=== PATIENT | male | born 1935 | race Hispanic/Latino ===

== ENCOUNTER 2018-06-01 12:31 | Inpatient (IN) | payer MEDICARE ==
--- NOTE | 2018-06-01 13:06 | ED PDOC ---
Arrival/HPI - General Chief Complaint: Trauma Time Seen by Provider: 06/01/18 12:46 - History of Present Illness Narrative History of Present Illness (Text): 06/01/18 13:03 83 yo male, hx of afib on warfarin, presents s/p fall. states foot "got caught", and fell. co of pain to right thumb, left shoulder left rib, left scapula. states "hit his head very mild" against closet door. no [place], no loc. states mechanicla fall. does not want pain meds. Past Medical History - Infectious Disease Hx of Infectious Diseases: None - Cardiac Hx Atrial Fibrillation: Yes Hx Hypertension: Yes - Psychiatric Hx Substance Use: No - Surgical History Other/Comment: carotid artery sx - Anesthesia Hx Anesthesia: Yes Hx Anesthesia Reactions: No Hx Malignant Hyperthermia: No Family/Social History Family/Social History: Unknown Family HX Smoking Status: Never Smoked Hx Alcohol Use: No Hx Substance Use: No Allergies/Home Meds Allergies/Adverse Reactions: Allergies No Known Allergies Allergy (Verified 06/01/18 12:53) Home Medications: Home Meds Medication Instructions Recorded Confirmed RX: Aspirin [Aspirin Chewable] 1 tab PO DAILY 06/01/18 06/01/18 RX: Atorvastatin [Lipitor] 1 tab PO DAILY 06/01/18 06/01/18 RX: Benazepril HCl [Lotensin] 1 tab PO DAILY 06/01/18 06/01/18 Warfarin [Coumadin] 1 tab PO DAILY 06/01/18 06/01/18 amLODIPine [Norvasc] 1 tab PO DAILY 06/01/18 06/01/18 Review of Systems - Review of Systems Constitutional: Normal Eyes: Normal ENT: Normal Respiratory: Normal Cardiovascular: Normal Gastrointestinal: Normal Genitourinary Male: Normal Musculoskeletal: Other (right thumb, left shoulder rib pain) Skin: Normal Neurological: Normal Endocrine: Normal Hemo/Lymphatic: Normal Psychiatric: Normal Physical Exam Vital Signs Temp Pulse Resp BP Pulse Ox 06/01/18 12:56 98.0 F 93 H 18 144/87 95 Temperature: Afebrile Blood Pressure: Normal Pulse: Regular Respiratory Rate: Normal Appearance: Positive for: Well-Appearing, Non-Toxic, Comfortable Pain Distress: None Mental Status: Positive for: Alert and Oriented X 3 - Systems Exam Head: Present: Atraumatic, Normocephalic Pupils: Present: PERRL Extroacular Muscles: Present: EOMI Conjunctiva: Present: Normal Mouth: Present: Moist Mucous Membranes Neck: Present: Normal Range of Motion Respiratory/Chest: Present: Good Air Exchange, Tender to Palpation (mild ttp left costal posterior region). No: Respiratory Distress, Accessory Muscle Use Cardiovascular: Present: Regular Rate and Rhythm, Normal S1, S2. No: Murmurs Abdomen: No: Tenderness, Distention, Peritoneal Signs Back: Present: Normal Inspection Upper Extremity: Present: Tenderness (rigth 1st digit, left shoulder left scapula), Swelling (rigth thumb, left shoulder left scapula). No: Cyanosis, Edema Lower Extremity: Present: Normal Inspection. No: Edema Neurological: Present: GCS=15, CN II-XII Intact, Speech Normal, Motor Func Grossly Intact, Normal Sensory Function, Normal Cerebellar Funct Skin: Present: Warm, Dry, Normal Color. No: Rashes Psychiatric: Present: Alert, Oriented x 3, Normal Insight, Normal Concentration Medical Decision Making ED Course and Treatment: 06/01/18 15:15 EKG reviewed shows atrial fibrillation at [address]-segment elevations or depressions, no T-wave inversions, normal intervals. 06/01/18 16:14 xr shows no fx. ct shows small sah. discussed with dr persaud, requests repeqat head ct 6 hours. vit k and ffp dosed. accepted icu. - RAD Interpretation Radiology Orders: 06/01/18 13:01 HAND RIGHT 3 VIEWS [RAD] Stat RIBS LEFT & PA CHEST [RAD] Stat SCAPULA LEFT [RAD] Stat SHOULDER LEFT [RAD] Stat 06/01/18 13:02 HEAD W/O CONTRAST [CT] Stat Disposition/Present on Arrival - Present on Arrival Any Indicators Present on Arrival: No History of DVT/PE: No History of Uncontrolled Diabetes: No Urinary Catheter: No History of Decub. Ulcer: No History Surgical Site Infection Following: None - Disposition Have Diagnosis and Disposition been Completed?: Yes Diagnosis: Subarachnoid hemorrhage Disposition: HOSPITALIZED Disposition Time: 15:00 Condition: CRITICAL
--- NOTE | 2018-06-01 14:21 | CT ---
Date of service: 06/01/2018 PROCEDURE: CT HEAD WITHOUT CONTRAST. HISTORY: Trauma, currently on Coumadin. COMPARISON: None available. TECHNIQUE: Axial computed tomography images were obtained through the head/brain without intravenous contrast. Supplemental Coronal and Sagittal projections created and reviewed. Radiation dose: Total exam DLP = 852.59 mGy-cm. This CT exam was performed using one or more of the following dose reduction techniques: Automated exposure control, adjustment of the mA and/or kV according to patient size, and/or use of iterative reconstruction technique. FINDINGS: HEMORRHAGE: Subtle areas of increased attenuation left mesial temporal region and deep right temporal lobe. These are seen on both axial and coronal images. BRAIN: No mass effect or edema. No atrophy or chronic microvascular ischemic changes. VENTRICLES: Unremarkable. No hydrocephalus. CALVARIUM: Unremarkable. PARANASAL SINUSES: Unremarkable as visualized. No significant inflammatory changes. MASTOID AIR CELLS: Unremarkable as visualized. No inflammatory changes. OTHER FINDINGS: None. IMPRESSION: Subtle areas of subarachnoid hemorrhage described in greater detail above. Communication of results: I discussed findings directly with the attending physician in the emergency department at 14:14.
--- NOTE | 2018-06-01 14:24 | RAD ---
PROCEDURE: Right Hand Radiographs. HISTORY: trauma COMPARISON: None. FINDINGS: BONES: Normal. No fracture. 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 SOFT TISSUES: Normal. OTHER FINDINGS: None. IMPRESSION: No acute findings related to/ accounting for the clinical presentation.
--- NOTE | 2018-06-01 14:25 | RAD ---
Date of service: 06/01/2018 PROCEDURE: Radiographs of the Chest and Left Ribs. HISTORY: trauma COMPARISON: None available. TECHNIQUE: Frontal radiograph of the chest and multiple oblique radiographs of the left ribs were obtained. FINDINGS: LEFT RIBS: No fracture or focal lesion visualized. LUNGS: Clear. PLEURA: No pneumothorax or pleural fluid. CARDIOVASCULAR: Normal cardiac size. No pulmonary vascular congestion. Atherosclerotic changes primarily in the aortic arch region. OTHER FINDINGS: None. IMPRESSION: Unremarkable radiographs of the chest and left ribs. No left rib fracture.
--- NOTE | 2018-06-01 14:26 | RAD ---
Date of service: 06/01/2018 PROCEDURE: Radiographs of the Left Shoulder HISTORY: trauma COMPARISON: No prior. FINDINGS: BONES: No visible fracture. Deformity of the scapula likely the sequela of prior trauma. JOINTS: Glenohumeral and acromioclavicular degenerative change. SOFT TISSUES: Normal. OTHER FINDINGS: None. IMPRESSION: No acute fracture. Acromioclavicular and glenohumeral degenerative change. Scapular deformity inferiorly likely the sequela of prior/old trauma.
[2018-06-01] MEDS ORDERED: Phytonadione 10 MG in Sodium Chloride 0.9% 50 ML IV ONE (14:30)
[2018-06-01 15:05] LABS: EOS % 0.1 % (1.5-5.0); GRAN # 6.17 (1.4-6.5); GRAN % 84.6 % (50.0-68.0); HEMOGLOBIN 13.9 g/dL (14.0-18.0); LYMPH # 0.8 (1.2-3.4); LYMPH % 10.5 % (22.0-35.0); MEAN CELL VOLUME 89.3 fl (80.0-105.0); MEAN CORPUSCULAR HEMOGLOBIN 30.4 pg (25.0-35.0); MEAN CORPUSCULAR HGB CONC 34.1 g/dl (31.0-37.0); MEAN PLATELET VOLUME 11.3 fl (7.0-11.0); MONO # 0.4 (0.1-0.6); MONO % 4.8 % (1.0-6.0); RBC 4.57 10^6/uL (3.5-6.1); WHITE BLOOD COUNT 7.3 10^3/uL (4.5-11.0)
[2018-06-01 15:10] LABS: ALB/GLOB RATIO 1.6 (1.1-1.8); ALT/SGPT 35 U/L (7-56); AST/SGOT 38 U/L (17-59); BLOOD UREA NITROGEN 15 mg/dL (7-21); CALCIUM 10.8 mg/dL (8.4-10.5); GFR NON-AFRICAN AMERICAN > 60
[2018-06-01 15:13] LABS: INR 2.23; PARTIAL THROMBOPLASTIN TIME 35.2 Seconds (25.1-36.5); PROTHROMBIN TIME 25.9 SECONDS (9.4-12.5)
[2018-06-01 17:44] VITALS: BMI 27.8
--- NOTE | 2018-06-02 01:03 | CON ---
DATE: 06/01/2018 REQUESTING PHYSICIAN: Jaime Khan MD CHIEF COMPLAINT: The patient presented with a history of falling and bumping his shoulder on the left side and his ribs as well as hitting his head on the door. HISTORY OF PRESENT ILLNESS: Mr. Washington is an 83-year-old male who carries a diagnosis of atrial fibrillation, hypertension and has had carotid artery surgery in the past. The patient is on anticoagulants and stated that he stumbled at home, fell, and hurt his left shoulder as well as his back and his scapular region as well as his ribs. He also felt that he also hurt his right thumb, which is quite swollen and red at this time. The patient is awake and alert. No complaints of chest pain or shortness of breath, cough, wheezing. No fever, chills. No nausea or vomiting. No headaches. The patient states that he did not lose consciousness when he fell and hit his head and other parts of his body. He does have problems raising his left arm up secondary to the pain in his shoulder. PAST MEDICAL HISTORY: As above. ALLERGIES: HE HAS NO KNOWN ALLERGIES. CURRENT MEDICATIONS: Can be evaluated as per the nurse's intake form. SOCIAL HISTORY: No history of smoking, ETOH abuse, or drug abuse. FAMILY HISTORY: Noncontributory. REVIEW OF SYSTEMS: CONSTITUTIONAL: All negative. HEENT: All negative. RESPIRATORY: All negative. CARDIOVASCULAR: All negative. GASTROINTESTINAL: All negative. : All negative. MUSCULOSKELETAL: The patient has the swollen red thumb, which is very tender, pain in the area of his left shoulder, left side of his thorax, the ribs area, and his scapular area on the left side as well. NEUROPSYCHIATRIC: All negative. HEMATOLOGY: All negative. IMMUNOLOGIC: All negative. INTEGRITY: All negative. PHYSICAL EXAMINATION: VITAL SIGNS: Note that his temperature is 98, his pulse is 93, respirations are 18, and BP is 144/87. SKIN: Warm and dry. HEAD: Atraumatic, normocephalic. EYES: Reactive to light. EARS, NOSE, AND THROAT: Seemed to be within normal limits. NECK: Supple. No JVD. No thyroid enlargement. No lymph nodes. HEART: Regular rate and rhythm. Normal S1, S2. LUNGS: Revealed good breath sounds bilaterally. ABDOMEN: Soft, nontender. Normal bowel sounds. No organomegaly noted. GENITALIA AND RECTAL: Deferred. MUSCULOSKELETAL: No joint deformities. Note that the patient does have the swelling in his right thumb. He has pain on movement in his left shoulder and scapular region. NEUROLOGICAL: He seemed to be grossly intact. LABORATORIES: His white count is 7.3, hemoglobin is 13.9, hematocrit 40.8 with platelets of 204,000. PT is 25.9, INR is 2.23, PTT is 35.2. Sodium is 140, potassium 4.3, chloride 108, CO2 of 23 with a BUN of 15, creatinine of 0.9 and a glucose of 108. The patient's CT scan of the head reveals a subtle area of subarachnoid hemorrhage described in greater detail above. The patient's shoulder and scapula x-ray reveals that there is no acute fracture, the acromioclavicular and glenohumeral degenerative change and scapular deformity inferiorly, likely the sequelae of prior or old traumas. Right thumb x-ray, no acute findings accounting for the clinical presentation. Left ribs x-ray unremarkable. Radiograph of the chest and left ribs, no left rib fracture. IMPRESSION: This patient has subarachnoid hemorrhage and history of atrial fibrillation, hypertension, and a history of carotid artery surgery in the past. He has contusions to his thumb and possible contusions and strain of the left shoulder. PLAN: We will admit the patient to the intensive care unit. Close observation neurologically. The patient has been consulted with Neuro as well as Neurosurgery. We will give the patient fresh frozen plasma as well as vitamin K and monitor his labs closely. We will follow closely and treat aggressively along with the other consultants and the primary care doctor. Rocky Rae MD
[2018-06-02 06:33] LABS: EOS % 0.5 % (1.5-5.0); GRAN # 2.95 (1.4-6.5); HEMOGLOBIN 12.6 g/dL (14.0-18.0); LYMPH # 0.4 (1.2-3.4); LYMPH % 9.4 % (22.0-35.0); MEAN CELL VOLUME 88.7 fl (80.0-105.0); MEAN CORPUSCULAR HEMOGLOBIN 30.3 pg (25.0-35.0); MEAN CORPUSCULAR HGB CONC 34.1 g/dl (31.0-37.0); MEAN PLATELET VOLUME 11.4 fl (7.0-11.0); MONO # 0.9 (0.1-0.6); MONO % 21.1 % (1.0-6.0); PLATELET COUNT 167 10^3/uL (120.0-450.0); RBC 4.16 10^6/uL (3.5-6.1); RED CELL DISTRIBUTION WIDTH 13.1 % (11.5-14.5); WHITE BLOOD COUNT 4.3 10^3/uL (4.5-11.0)
--- NOTE | 2018-06-02 06:49 | CP.CCUPN ---
<Josue Hansen - Last Filed: 06/02/18 12:36> CCU Subjective - Physician Review Subjective (Free Text): Josue Hansen Internal Medicine Resident- Progress Note on Behalf of Critical Care Team Subjective: Patient seen and examined at bedside. No acute events. Patient admits to baseline left shoulder pain. Offers no new complaints at this time. Denies fever, chills, headache, visual/auditory changes, dizziness, chest pain, shortness of breath, abdominal pain, nausea, vomiting, diarrhea, constipation, and urinary symptoms. 12 point ROS cannot be ascertained at this time due to altered mental status Physical Examination: - Constitutional Appears: Well, No Acute Distress - Head Exam Head Exam: ATRAUMATIC, NORMAL INSPECTION, NORMOCEPHALIC - Eye Exam Eye Exam: EOMI, Normal appearance, PERRL - ENT Exam ENT Exam: Mucous Membranes Moist - Neck Exam Neck exam: Positive for: Normal Inspection - Respiratory Exam Respiratory Exam: Clear to Auscultation Bilateral, NORMAL BREATHING PATTERN - Cardiovascular Exam Cardiovascular Exam: REGULAR RHYTHM, +S1, +S2. absent: Gallop, JVD, Rubs - GI/Abdominal Exam GI & Abdominal Exam: Normal Bowel Sounds, Soft. absent: Tenderness - Neurological Exam Neurological exam: awake, alert, orientated x 3, responds to verbal stimuli, follows commands, moves extremities past midline, CNII- XII intact bilaterally, 5/5 muscle strength bilaterally, sensation intact to touch throughout - Psychiatric Exam Psychiatric exam: Normal Affect, Normal Mood - Skin Skin Exam: Dry, Intact, Normal Color, War Assessment and Plan: Patient is a 83 year old male with a past medical history of atrial fibrillation on warfarin and hypertension who was admitted for evaluation and treatment of a mechanical fall. On CT of head the patient was found to have a subarachnoid hemorrhage. Patient was transferred to ICU for further care. Neuro SAH - GCS [id number] - 06/01/2018 CT head without contrast- Subtle areas of increased attenuation left mesial temporal region and deep right temporal lobe - 06/02/2018- Repeat CT head without contrast- No acute intracranial findings. No evidence of subarachnoid hemorrhage - hold home Coumadin - hold home aspirin - s/p 1 unit FFP and Vitamin K - neurosurgery consulted- no acute intervention - neurology consulted- appreciate recommendations- ok to transfer, no SAH noted on repeat CT head Cardiovascular: Hx of Atrial Fibrillation - continue to hold home warfarin Hx of HTN - hold home losentin - hold home norvasc HPl - continue home atorvastatin 10mg PO HS Resp: - keep SaO2 >90% GI - continue heart healthy diet Heme Anemia - normocytic - downtrending 13.9 to 12.6 DVT Ppx - SCD Dispo: Hemodynamically stable. Ok for transfer to telemetry floor. Patient case discussed with and plan approved by attending physician, Dr. Sutherland. CCU Objective - Vital Signs / Intake & Output Vital Signs (Last 4 hours): Vital Signs Temp Pulse Resp BP Pulse Ox 06/02/18 06:00 98.2 F 78 29 H 139/79 96 Intake and Output (Last 8hrs): Intake & Output 06/01/18 06/01/18 06/02/18 14:59 22:59 06:59 Intake Total 248 Output Total 275 Balance -27 Weight 180 lb 183 lb 170 lb Intake: IV 50 Right Antecubital 50 Blood Product 198 Output: Urine 275 Urine, Voided 275 Other: Voiding Method Urinal - Physical Exam Head: Positive for: Atraumatic, Normocephalic Pupils: Positive for: PERRL Extroacular Muscles: Positive for: EOMI Conjunctiva: Positive for: Normal Mouth: Positive for: Moist Mucous Membranes Neck: Positive for: Normal Range of Motion Respiratory/Chest: Positive for: Good Air Exchange, Tender to Palpation (mild ttp left costal posterior region). Negative for: Respiratory Distress, Accessory Muscle Use Cardiovascular: Positive for: Regular Rate and Rhythm, Normal S1, S2. Negative for: Murmurs Abdomen: Negative for: Tenderness, Distention, Peritoneal Signs Back: Positive for: Normal Inspection Upper Extremity: Positive for: Tenderness (rigth 1st digit, left shoulder left scapula), Swelling (rigth thumb, left shoulder left scapula). Negative for: Cyanosis, Edema Lower Extremity: Positive for: Normal Inspection. Negative for: Edema Neurological: Positive for: GCS=15, CN II-XII Intact, Speech Normal, Motor Func Grossly Intact, Normal Sensory Function, Normal Cerebellar Funct Skin: Positive for: Warm, Dry, Normal Color. Negative for: Rashes Psychiatric: Positive for: Alert, Oriented x 3, Normal Insight, Normal Concentration - Medications Active Medications: Active Medications Generic Name Dose Route Start Last Admin Trade Name Freq PRN Reason Stop Dose Admin Atorvastatin Calcium 10 mg 06/02/18 17:00 Lipitor PO DIN DAYO Hydralazine HCl 10 mg 06/01/18 17:47 Apresoline IVP Q6 PRN Systolic Blood Pressure - Patient Studies Lab Studies: Lab Studies 06/02/18 06/01/18 06/01/18 Range/Units 05:30 15:15 14:50 WBC 4.3 L D (4.5-11.0) 10^3/uL RBC 4.16 (3.5-6.1) 10^6/uL Hgb 12.6 L (14.0-18.0) g/dL Hct 36.9 L (42.0-52.0) % MCV 88.7 (80.0-105.0) fl MCH 30.3 (25.0-35.0) pg MCHC 34.1 (31.0-37.0) g/dl RDW 13.1 (11.5-14.5) % Plt Count 167 (120.0-450.0) 10^3/uL MPV 11.4 H (7.0-11.0) fl Gran % 69.0 H (50.0-68.0) % Lymph % (Auto) 9.4 L (22.0-35.0) % [place]ckett % (Auto) 21.1 H (1.0-6.0) % Eos % (Auto) 0.5 L (1.5-5.0) % Baso % (Auto) 0.0 (0.0-3.0) % Gran # 2.95 (1.4-6.5) Lymph # (Auto) 0.4 L (1.2-3.4) [place] # (Auto) 0.9 H (0.1-0.6) Eos # (Auto) 0.0 (0.0-0.7) Baso # (Auto) 0.00 (0.0-2.0) K/mm3 PT (9.4-12.5) SECONDS INR APTT (25.1-36.5) Seconds Sodium (132-148) mmol/L Potassium (3.6-5.0) mmol/L Chloride (98-107) mmol/L Carbon Dioxide (21-33) mmol/L Anion Gap (10-20) BUN (7-21) mg/dL Creatinine (0.8-1.5) mg/dl Est GFR ( Amer) Est GFR (Non-Af Amer) Random Glucose (70-110) mg/dL Calcium (8.4-10.5) mg/dL Total Bilirubin (0.2-1.3) mg/dL AST (17-59) U/L ALT (7-56) U/L Alkaline Phosphatase (38-126) U/L Total Protein (5.8-8.3) g/dL Albumin (3.0-4.8) g/dL Globulin gm/dL Albumin/Globulin Ratio (1.1-1.8) Blood Type A POSITIVE Blood Type Confirm A POSITIVE Antibody Screen Negative BBK History Checked No verified bt 06/01/18 06/01/18 06/01/18 Range/Units 14:50 14:50 14:50 WBC 7.3 (4.5-11.0) 10^3/uL RBC 4.57 (3.5-6.1) 10^6/uL Hgb 13.9 L (14.0-18.0) g/dL Hct 40.8 L (42.0-52.0) % MCV 89.3 (80.0-105.0) fl MCH 30.4 (25.0-35.0) pg MCHC 34.1 (31.0-37.0) g/dl RDW 13.0 (11.5-14.5) % Plt Count 204 (120.0-450.0) 10^3/uL MPV 11.3 H (7.0-11.0) fl Gran % 84.6 H (50.0-68.0) % Lymph % (Auto) 10.5 L (22.0-35.0) % [place]ckett % (Auto) 4.8 (1.0-6.0) % Eos % (Auto) 0.1 L (1.5-5.0) % Baso % (Auto) 0.0 (0.0-3.0) % Gran # 6.17 (1.4-6.5) Lymph # (Auto) 0.8 L (1.2-3.4) [place]ckett # (Auto) 0.4 (0.1-0.6) Eos # (Auto) 0.0 (0.0-0.7) Baso # (Auto) 0.00 (0.0-2.0) K/mm3 PT 25.9 H (9.4-12.5) SECONDS INR 2.23 APTT 35.2 (25.1-36.5) Seconds Sodium 140 (132-148) mmol/L Potassium 4.3 (3.6-5.0) mmol/L Chloride 108 H (98-107) mmol/L Carbon Dioxide 23 (21-33) mmol/L Anion Gap 14 (10-20) BUN 15 (7-21) mg/dL Creatinine 0.9 (0.8-1.5) mg/dl Est GFR ( Amer) > 60 Est GFR (Non-Af Amer) > 60 Random Glucose 108 (70-110) mg/dL Calcium 10.8 H (8.4-10.5) mg/dL Total Bilirubin 1.0 (0.2-1.3) mg/dL AST 38 (17-59) U/L ALT 35 (7-56) U/L Alkaline Phosphatase 243 H (38-126) U/L Total Protein 8.2 (5.8-8.3) g/dL Albumin 5.0 H (3.0-4.8) g/dL Globulin 3.2 gm/dL Albumin/Globulin Ratio 1.6 (1.1-1.8) Blood Type Blood Type Confirm Antibody Screen BBK History Checked Laboratory Results - last 24 hr 06/01/18 06/01/18 06/01/18 14:50 14:50 14:50 WBC 7.3 RBC 4.57 Hgb 13.9 L Hct 40.8 L MCV 89.3 MCH 30.4 MCHC 34.1 RDW 13.0 Plt Count 204 MPV 11.3 H Gran % 84.6 H Lymph % (Auto) 10.5 L [place]ckett % (Auto) 4.8 Eos % (Auto) 0.1 L Baso % (Auto) 0.0 Gran # 6.17 Lymph # (Auto) 0.8 L [place] # (Auto) 0.4 Eos # (Auto) 0.0 Baso # (Auto) 0.00 PT 25.9 H INR 2.23 APTT 35.2 Sodium 140 Potassium 4.3 Chloride 108 H Carbon Dioxide 23 Anion Gap 14 BUN 15 Creatinine 0.9 Est GFR ( Amer) > 60 Est GFR (Non-Af Amer) > 60 Random Glucose 108 Calcium 10.8 H Total Bilirubin 1.0 AST 38 ALT 35 Alkaline Phosphatase 243 H Total Protein 8.2 Albumin 5.0 H Globulin 3.2 Albumin/Globulin Ratio 1.6 Blood Type Blood Type Confirm Antibody Screen BBK History Checked 06/01/18 06/01/18 06/02/18 14:50 15:15 05:30 WBC 4.3 L D RBC 4.16 Hgb 12.6 L Hct 36.9 L MCV 88.7 MCH 30.3 MCHC 34.1 RDW 13.1 Plt Count 167 MPV 11.4 H Gran % 69.0 H Lymph % (Auto) 9.4 L [place]ck[place] % (Auto) 21.1 H Eos % (Auto) 0.5 L Baso % (Auto) 0.0 Gran # 2.95 Lymph # (Auto) 0.4 L [place]ck[place] # (Auto) 0.9 H Eos # (Auto) 0.0 Baso # (Auto) 0.00 PT INR APTT Sodium Potassium Chloride Carbon Dioxide Anion Gap BUN Creatinine Est GFR ( Amer) Est GFR (Non-Af Amer) Random Glucose Calcium Total Bilirubin AST ALT Alkaline Phosphatase Total Protein Albumin Globulin Albumin/Globulin Ratio Blood Type A POSITIVE Blood Type Confirm A POSITIVE Antibody Screen Negative BBK History Checked No verified bt Radiology Impressions: Radiology Impressions Hand X-Ray 06/01/18 13:01 IMPRESSION: No acute findings related to/ accounting for the clinical presentation. Ribs X-Ray 06/01/18 13:01 IMPRESSION: Unremarkable radiographs of the chest and left ribs. No left rib fracture. Scapula X-Ray 06/01/18 13:01 IMPRESSION: No acute fracture. Acromioclavicular and glenohumeral degenerative change. Scapular deformity inferiorly likely the sequela of prior/old trauma. Shoulder X-Ray 06/01/18 13:01 IMPRESSION: No acute fracture. Acromioclavicular and glenohumeral degenerative change. Scapular deformity inferiorly likely the sequela of prior/old trauma. Head CT 06/01/18 13:02 IMPRESSION: Subtle areas of subarachnoid hemorrhage described in greater detail above. Communication of results: I discussed findings directly with the attending physician in the emergency department at 14:14. EKG/Cardiology Studies: Cardiology / EKG Studies 06/01/18 14:21 EKG [ELECTROCARDIOGRAM] Stat Comment: Reason For Exam: afib Critical Care Progress Note - Nutrition Nutrition: Nutrition Category Date Time Status Heart Healthy Diet [DIET] Diets 06/01/18 Breakfast Active <Nikita Sutherland - Last Filed: 06/02/18 13:50> CCU Objective - Vital Signs / Intake & Output Intake and Output (Last 8hrs): Intake & Output 06/01/18 06/02/18 06/02/18 22:59 06:59 14:59 Intake Total 248 Output Total 275 Balance -27 Weight 183 lb 170 lb Intake: IV 50 Right Antecubital 50 Blood Product 198 Output: Urine 275 Urine, Voided 275 Other: Voiding Method Urinal - Medications Active Medications: Active Medications Generic Name Dose Route Start Last Admin Trade Name Freq PRN Reason Stop Dose Admin Atorvastatin Calcium 10 mg 06/02/18 17:00 Lipitor PO DIN DAYO Hydralazine HCl 10 mg 06/01/18 17:47 Apresoline IVP Q6 PRN Systolic Blood Pressure - Patient Studies Lab Studies: Lab Studies 06/02/18 06/02/18 06/02/18 Range/Units 09:50 05:30 05:30 WBC 4.3 L D (4.5-11.0) 10^3/uL RBC 4.16 (3.5-6.1) 10^6/uL Hgb 12.6 L (14.0-18.0) g/dL Hct 36.9 L (42.0-52.0) % MCV 88.7 (80.0-105.0) fl MCH 30.3 (25.0-35.0) pg MCHC 34.1 (31.0-37.0) g/dl RDW 13.1 (11.5-14.5) % Plt Count 167 (120.0-450.0) 10^3/uL MPV 11.4 H (7.0-11.0) fl Gran % 69.0 H (50.0-68.0) % Lymph % (Auto) 9.4 L (22.0-35.0) % [place]ck[place] % (Auto) 21.1 H (1.0-6.0) % Eos % (Auto) 0.5 L (1.5-5.0) % Baso % (Auto) 0.0 (0.0-3.0) % Gran # 2.95 (1.4-6.5) Lymph # (Auto) 0.4 L (1.2-3.4) [place]ett # (Auto) 0.9 H (0.1-0.6) Eos # (Auto) 0.0 (0.0-0.7) Baso # (Auto) 0.00 (0.0-2.0) K/mm3 Neutrophils % (Manual) 79 H (50.0-70.0) % Lymphocytes % (Manual) 6 L (22.0-35.0) % Monocytes % (Manual) 13 H (1.0-6.0) % Eosinophils % (Manual) 1 (0.0-3.0) % Basophils % (Manual) 1 (0.0-1.0) % Platelet Evaluation Normal (NORMAL) PT 14.2 H (9.4-12.5) SECONDS INR 1.23 APTT (25.1-36.5) Seconds Sodium 139 (132-148) mmol/L Potassium 4.0 (3.6-5.0) mmol/L Chloride 109 H (98-107) mmol/L Carbon Dioxide 24 (21-33) mmol/L Anion Gap 10 (10-20) BUN 12 (7-21) mg/dL Creatinine 0.8 (0.8-1.5) mg/dl Est GFR ( Amer) > 60 Est GFR (Non-Af Amer) > 60 Random Glucose 94 (70-110) mg/dL Calcium 10.1 (8.4-10.5) mg/dL Phosphorus 2.7 (2.5-4.5) mg/dL Magnesium 1.9 (1.7-2.2) mg/dL Total Bilirubin 1.3 (0.2-1.3) mg/dL AST 34 (17-59) U/L ALT 31 (7-56) U/L Alkaline Phosphatase 193 H D (38-126) U/L Total Protein 7.2 (5.8-8.3) g/dL Albumin 4.3 (3.0-4.8) g/dL Globulin 2.9 gm/dL Albumin/Globulin Ratio 1.4 (1.1-1.8) Blood Type Blood Type Confirm Antibody Screen BBK History Checked 06/01/18 06/01/18 06/01/18 Range/Units 15:15 14:50 14:50 WBC (4.5-11.0) 10^3/uL RBC (3.5-6.1) 10^6/uL Hgb (14.0-18.0) g/dL Hct (42.0-52.0) % MCV (80.0-105.0) fl MCH (25.0-35.0) pg MCHC (31.0-37.0) g/dl RDW (11.5-14.5) % Plt Count (120.0-450.0) 10^3/uL MPV (7.0-11.0) fl Gran % (50.0-68.0) % Lymph % (Auto) (22.0-35.0) % [place]ckett % (Auto) (1.0-6.0) % Eos % (Auto) (1.5-5.0) % Baso % (Auto) (0.0-3.0) % Gran # (1.4-6.5) Lymph # (Auto) (1.2-3.4) [place]ckett # (Auto) (0.1-0.6) Eos # (Auto) (0.0-0.7) Baso # (Auto) (0.0-2.0) K/mm3 Neutrophils % (Manual) (50.0-70.0) % Lymphocytes % (Manual) (22.0-35.0) % Monocytes % (Manual) (1.0-6.0) % Eosinophils % (Manual) (0.0-3.0) % Basophils % (Manual) (0.0-1.0) % Platelet Evaluation (NORMAL) PT (9.4-12.5) SECONDS INR APTT (25.1-36.5) Seconds Sodium 140 (132-148) mmol/L Potassium 4.3 (3.6-5.0) mmol/L Chloride 108 H (98-107) mmol/L Carbon Dioxide 23 (21-33) mmol/L Anion Gap 14 (10-20) BUN 15 (7-21) mg/dL Creatinine 0.9 (0.8-1.5) mg/dl Est GFR ( Amer) > 60 Est GFR (Non-Af Amer) > 60 Random Glucose 108 (70-110) mg/dL Calcium 10.8 H (8.4-10.5) mg/dL Phosphorus (2.5-4.5) mg/dL Magnesium (1.7-2.2) mg/dL Total Bilirubin 1.0 (0.2-1.3) mg/dL AST 38 (17-59) U/L ALT 35 (7-56) U/L Alkaline Phosphatase 243 H (38-126) U/L Total Protein 8.2 (5.8-8.3) g/dL Albumin 5.0 H (3.0-4.8) g/dL Globulin 3.2 gm/dL Albumin/Globulin Ratio 1.6 (1.1-1.8) Blood Type A POSITIVE Blood Type Confirm A POSITIVE Antibody Screen Negative BBK History Checked No verified bt 06/01/18 06/01/18 Range/Units 14:50 14:50 WBC 7.3 (4.5-11.0) 10^3/uL RBC 4.57 (3.5-6.1) 10^6/uL Hgb 13.9 L (14.0-18.0) g/dL Hct 40.8 L (42.0-52.0) % MCV 89.3 (80.0-105.0) fl MCH 30.4 (25.0-35.0) pg MCHC 34.1 (31.0-37.0) g/dl RDW 13.0 (11.5-14.5) % Plt Count 204 (120.0-450.0) 10^3/uL MPV 11.3 H (7.0-11.0) fl Gran % 84.6 H (50.0-68.0) % Lymph % (Auto) 10.5 L (22.0-35.0) % [place]ckett % (Auto) 4.8 (1.0-6.0) % Eos % (Auto) 0.1 L (1.5-5.0) % Baso % (Auto) 0.0 (0.0-3.0) % Gran # 6.17 (1.4-6.5) Lymph # (Auto) 0.8 L (1.2-3.4) [place]ett # (Auto) 0.4 (0.1-0.6) Eos # (Auto) 0.0 (0.0-0.7) Baso # (Auto) 0.00 (0.0-2.0) K/mm3 Neutrophils % (Manual) (50.0-70.0) % Lymphocytes % (Manual) (22.0-35.0) % Monocytes % (Manual) (1.0-6.0) % Eosinophils % (Manual) (0.0-3.0) % Basophils % (Manual) (0.0-1.0) % Platelet Evaluation (NORMAL) PT 25.9 H (9.4-12.5) SECONDS INR 2.23 APTT 35.2 (25.1-36.5) Seconds Sodium (132-148) mmol/L Potassium (3.6-5.0) mmol/L Chloride (98-107) mmol/L Carbon Dioxide (21-33) mmol/L Anion Gap (10-20) BUN (7-21) mg/dL Creatinine (0.8-1.5) mg/dl Est GFR ( Amer) Est GFR (Non-Af Amer) Random Glucose (70-110) mg/dL Calcium (8.4-10.5) mg/dL Phosphorus (2.5-4.5) mg/dL Magnesium (1.7-2.2) mg/dL Total Bilirubin (0.2-1.3) mg/dL AST (17-59) U/L ALT (7-56) U/L Alkaline Phosphatase (38-126) U/L Total Protein (5.8-8.3) g/dL Albumin (3.0-4.8) g/dL Globulin gm/dL Albumin/Globulin Ratio (1.1-1.8) Blood Type Blood Type Confirm Antibody Screen BBK History Checked Laboratory Results - last 24 hr 06/01/18 06/01/18 06/01/18 14:50 14:50 14:50 WBC 7.3 RBC 4.57 Hgb 13.9 L Hct 40.8 L MCV 89.3 MCH 30.4 MCHC 34.1 RDW 13.0 Plt Count 204 MPV 11.3 H Gran % 84.6 H Lymph % (Auto) 10.5 L [place] % (Auto) 4.8 Eos % (Auto) 0.1 L Baso % (Auto) 0.0 Gran # 6.17 Lymph # (Auto) 0.8 L [place] # (Auto) 0.4 Eos # (Auto) 0.0 Baso # (Auto) 0.00 Neutrophils % (Manual) Lymphocytes % (Manual) Monocytes % (Manual) Eosinophils % (Manual) Basophils % (Manual) Platelet Evaluation PT 25.9 H INR 2.23 APTT 35.2 Sodium 140 Potassium 4.3 Chloride 108 H Carbon Dioxide 23 Anion Gap 14 BUN 15 Creatinine 0.9 Est GFR ( Amer) > 60 Est GFR (Non-Af Amer) > 60 Random Glucose 108 Calcium 10.8 H Phosphorus Magnesium Total Bilirubin 1.0 AST 38 ALT 35 Alkaline Phosphatase 243 H Total Protein 8.2 Albumin 5.0 H Globulin 3.2 Albumin/Globulin Ratio 1.6 Blood Type Blood Type Confirm Antibody Screen BBK History Checked 06/01/18 06/01/18 06/02/18 14:50 15:15 05:30 WBC 4.3 L D RBC 4.16 Hgb 12.6 L Hct 36.9 L MCV 88.7 MCH 30.3 MCHC 34.1 RDW 13.1 Plt Count 167 MPV 11.4 H Gran % 69.0 H Lymph % (Auto) 9.4 L [place] % (Auto) 21.1 H Eos % (Auto) 0.5 L Baso % (Auto) 0.0 Gran # 2.95 Lymph # (Auto) 0.4 L [place] # (Auto) 0.9 H Eos # (Auto) 0.0 Baso # (Auto) 0.00 Neutrophils % (Manual) 79 H Lymphocytes % (Manual) 6 L Monocytes % (Manual) 13 H Eosinophils % (Manual) 1 Basophils % (Manual) 1 Platelet Evaluation Normal PT INR APTT Sodium Potassium Chloride Carbon Dioxide Anion Gap BUN Creatinine Est GFR ( Amer) Est GFR (Non-Af Amer) Random Glucose Calcium Phosphorus Magnesium Total Bilirubin AST ALT Alkaline Phosphatase Total Protein Albumin Globulin Albumin/Globulin Ratio Blood Type A POSITIVE Blood Type Confirm A POSITIVE Antibody Screen Negative BBK History Checked No verified bt 06/02/18 06/02/18 05:30 09:50 WBC RBC Hgb Hct MCV MCH MCHC RDW Plt Count MPV Gran % Lymph % (Auto) [place]ck[place] % (Auto) Eos % (Auto) Baso % (Auto) Gran # Lymph # (Auto) [place] # (Auto) Eos # (Auto) Baso # (Auto) Neutrophils % (Manual) Lymphocytes % (Manual) Monocytes % (Manual) Eosinophils % (Manual) Basophils % (Manual) Platelet Evaluation PT 14.2 H INR 1.23 APTT Sodium 139 Potassium 4.0 Chloride 109 H Carbon Dioxide 24 Anion Gap 10 BUN 12 Creatinine 0.8 Est GFR ( Amer) > 60 Est GFR (Non-Af Amer) > 60 Random Glucose 94 Calcium 10.1 Phosphorus 2.7 Magnesium 1.9 Total Bilirubin 1.3 AST 34 ALT 31 Alkaline Phosphatase 193 H D Total Protein 7.2 Albumin 4.3 Globulin 2.9 Albumin/Globulin Ratio 1.4 Blood Type Blood Type Confirm Antibody Screen BBK History Checked Radiology Impressions: Radiology Impressions Hand X-Ray 06/01/18 13:01 IMPRESSION: No acute findings related to/ accounting for the clinical presentation. Ribs X-Ray 06/01/18 13:01 IMPRESSION: Unremarkable radiographs of the chest and left ribs. No left rib fracture. Scapula X-Ray 06/01/18 13:01 IMPRESSION: No acute fracture. Acromioclavicular and glenohumeral degenerative change. Scapular deformity inferiorly likely the sequela of prior/old trauma. Shoulder X-Ray 06/01/18 13:01 IMPRESSION: No acute fracture. Acromioclavicular and glenohumeral degenerative change. Scapular deformity inferiorly likely the sequela of prior/old trauma. Head CT 06/01/18 13:02 IMPRESSION: Subtle areas of subarachnoid hemorrhage described in greater detail above. Communication of results: I discussed findings directly with the attending physician in the emergency department at 14:14. Head CT 06/01/18 19:00 IMPRESSION: No acute intracranial findings. No evidence of subarachnoid hemorrhage EKG/Cardiology Studies: Cardiology / EKG Studies 06/01/18 14:21 EKG [ELECTROCARDIOGRAM] Stat Comment: Reason For Exam: afib Critical Care Progress Note - Nutrition Nutrition: Nutrition Category Date Time Status Heart Healthy Diet [DIET] Diets 06/01/18 Breakfast Active Assessment/Plan - Assessment and Plan (Free Text) Assessment: Patient seen and examined on rounds with resident, agree with note with following additions/exceptions: Patient is 83yo male with PMhx of Afib on Coumadin, presents with fall, found to have small SAH, which is stable INR is normal after reversal, no focal neurological deficits BP under control Seen by neurology, cleared for transfer SAH Afib on AC Recommend: - supp o2 as needed - NO ID issues - BP control - Hold AC for now - follow up neuro, NSG - PT consult - DVT ppx, SCDs - Stable, transfer to tele
[2018-06-02 06:59] LABS: ALB/GLOB RATIO 1.4 (1.1-1.8); ALBUMIN 4.3 g/dL (3.0-4.8); ALT/SGPT 31 U/L (7-56); AST/SGOT 34 U/L (17-59); BLOOD UREA NITROGEN 12 mg/dL (7-21); CALCIUM 10.1 mg/dL (8.4-10.5); GFR NON-AFRICAN AMERICAN > 60
[2018-06-02 08:39] LABS: BASOPHIL 1 % (0.0-1.0); EOSINOPHIL 1 % (0.0-3.0); LYMPHOCYTE 6 % (22.0-35.0); MONOCYTE 13 % (1.0-6.0); NEUTROPHIL 79 % (50.0-70.0); PLATELET ESTIMATE NORMAL (NORMAL)
--- NOTE | 2018-06-02 10:00 | CT ---
Date of service: 06/02/2018 PROCEDURE: CT HEAD WITHOUT CONTRAST. HISTORY: SAH COMPARISON: 06/01/2018 TECHNIQUE: Axial computed tomography images were obtained through the head/brain without intravenous contrast. Radiation dose: Total exam DLP = 903.77 mGy-cm. This CT exam was performed using one or more of the following dose reduction techniques: Automated exposure control, adjustment of the mA and/or kV according to patient size, and/or use of iterative reconstruction technique. FINDINGS: HEMORRHAGE: There is no definite evidence of subarachnoid hemorrhage. Prominent choroid plexus can be seen within the temporal horns and the left choroid fissure. This is a normal variation. BRAIN: No mass effect or edema. No atrophy or chronic microvascular ischemic changes. VENTRICLES: Unremarkable. No hydrocephalus. CALVARIUM: Unremarkable. PARANASAL SINUSES: Unremarkable as visualized. No significant inflammatory changes. MASTOID AIR CELLS: Unremarkable as visualized. No inflammatory changes. OTHER FINDINGS: None. IMPRESSION: No acute intracranial findings. No evidence of subarachnoid hemorrhage
[2018-06-02 10:01] LABS: INR 1.23; PROTHROMBIN TIME 14.2 SECONDS (9.4-12.5)
--- NOTE | 2018-06-02 10:51 | CP.PCM.CON ---
History of Present Illness - History of Present Illness History of Present Illness: 83 yo male fell initial CT showed ? minimal SAH L ambient cistern 2nd CT entiterly negative no indication for hospitalization from nrs standpoint Past Patient History - Infectious Disease Hx of Infectious Diseases: None - Past Social History Smoking Status: Former Smoker - CARDIAC Hx Cardia Arrhythmia: Yes (a fib) Hx Hypercholesterolemia: Yes Hx Hypertension: Yes - PULMONARY Hx Respiratory Disorders: No - NEUROLOGICAL Hx Neurological Disorder: No - HEENT Hx HEENT Problems: Yes (eye glasses for reading) Hx Cataracts: Yes (sx bilateral) Other/Comment: Partials upper and lower - RENAL Hx Kidney Stones: Yes (1 year ago) - ENDOCRINE/METABOLIC Hx Endocrine Disorders: No - HEMATOLOGICAL/ONCOLOGICAL Hx Blood Disorders: No - INTEGUMENTARY Other/Comment: informed patient that mold on right cheek might be cancerous - MUSCULOSKELETAL/RHEUMATOLOGICAL Hx Falls: Yes - GENITOURINARY/GYNECOLOGICAL Hx Hematuria: Yes (1 year ago) - PSYCHIATRIC Hx Psychophysiologic Disorder: No - SURGICAL HISTORY Hx Surgeries: Yes (cariot artey bilateral) Other/Comment: Tongue lesion bx - ANESTHESIA Hx Anesthesia: Yes Hx Anesthesia Reactions: No Hx Malignant Hyperthermia: No Meds Allergies/Adverse Reactions: Allergies Allergy/AdvReac Type Severity Reaction Status Date / Time No Known Allergies Allergy Verified 06/01/18 12:53 - Medications Medications: Current Medications Atorvastatin Calcium (Lipitor) 10 mg PO DIN DAYO Hydralazine HCl (Apresoline) 10 mg IVP Q6 PRN PRN Reason: Systolic Blood Pressure Results - Vital Signs Recent Vital Signs: Last Vital Signs Temp 98.2 F 06/02/18 06:00 Pulse 82 06/02/18 06:00 Resp 29 H 06/02/18 06:00 BP 139/79 06/02/18 06:00 Pulse Ox 96 06/02/18 06:00 - Labs Result Diagrams: 06/02/18 05:30 06/02/18 05:30 Labs: Laboratory Results - last 24 hr 06/01/18 06/01/18 06/01/18 14:50 14:50 14:50 WBC 7.3 RBC 4.57 Hgb 13.9 L Hct 40.8 L MCV 89.3 MCH 30.4 MCHC 34.1 RDW 13.0 Plt Count 204 MPV 11.3 H Gran % 84.6 H Lymph % (Auto) 10.5 L [place] % (Auto) 4.8 Eos % (Auto) 0.1 L Baso % (Auto) 0.0 Gran # 6.17 Lymph # (Auto) 0.8 L [place] # (Auto) 0.4 Eos # (Auto) 0.0 Baso # (Auto) 0.00 Neutrophils % (Manual) Lymphocytes % (Manual) Monocytes % (Manual) Eosinophils % (Manual) Basophils % (Manual) Platelet Evaluation PT 25.9 H INR 2.23 APTT 35.2 Sodium 140 Potassium 4.3 Chloride 108 H Carbon Dioxide 23 Anion Gap 14 BUN 15 Creatinine 0.9 Est GFR ( Amer) > 60 Est GFR (Non-Af Amer) > 60 Random Glucose 108 Calcium 10.8 H Phosphorus Magnesium Total Bilirubin 1.0 AST 38 ALT 35 Alkaline Phosphatase 243 H Total Protein 8.2 Albumin 5.0 H Globulin 3.2 Albumin/Globulin Ratio 1.6 Blood Type Blood Type Confirm Antibody Screen BBK History Checked 06/01/18 06/01/18 06/02/18 14:50 15:15 05:30 WBC 4.3 L D RBC 4.16 Hgb 12.6 L Hct 36.9 L MCV 88.7 MCH 30.3 MCHC 34.1 RDW 13.1 Plt Count 167 MPV 11.4 H Gran % 69.0 H Lymph % (Auto) 9.4 L [place] % (Auto) 21.1 H Eos % (Auto) 0.5 L Baso % (Auto) 0.0 Gran # 2.95 Lymph # (Auto) 0.4 L [place] # (Auto) 0.9 H Eos # (Auto) 0.0 Baso # (Auto) 0.00 Neutrophils % (Manual) 79 H Lymphocytes % (Manual) 6 L Monocytes % (Manual) 13 H Eosinophils % (Manual) 1 Basophils % (Manual) 1 Platelet Evaluation Normal PT INR APTT Sodium Potassium Chloride Carbon Dioxide Anion Gap BUN Creatinine Est GFR ( Amer) Est GFR (Non-Af Amer) Random Glucose Calcium Phosphorus Magnesium Total Bilirubin AST ALT Alkaline Phosphatase Total Protein Albumin Globulin Albumin/Globulin Ratio Blood Type A POSITIVE Blood Type Confirm A POSITIVE Antibody Screen Negative BBK History Checked No verified bt 06/02/18 06/02/18 05:30 09:50 WBC RBC Hgb Hct MCV MCH MCHC RDW Plt Count MPV Gran % Lymph % (Auto) [place] % (Auto) Eos % (Auto) Baso % (Auto) Gran # Lymph # (Auto) [place] # (Auto) Eos # (Auto) Baso # (Auto) Neutrophils % (Manual) Lymphocytes % (Manual) Monocytes % (Manual) Eosinophils % (Manual) Basophils % (Manual) Platelet Evaluation PT 14.2 H INR 1.23 APTT Sodium 139 Potassium 4.0 Chloride 109 H Carbon Dioxide 24 Anion Gap 10 BUN 12 Creatinine 0.8 Est GFR ( Amer) > 60 Est GFR (Non-Af Amer) > 60 Random Glucose 94 Calcium 10.1 Phosphorus 2.7 Magnesium 1.9 Total Bilirubin 1.3 AST 34 ALT 31 Alkaline Phosphatase 193 H D Total Protein 7.2 Albumin 4.3 Globulin 2.9 Albumin/Globulin Ratio 1.4 Blood Type Blood Type Confirm Antibody Screen BBK History Checked
--- NOTE | 2018-06-02 11:58 | CP.PCM.CON ---
History of Present Illness - History of Present Illness History of Present Illness: 83 yr old male with pmh of afib on coumadin for several years, got caught last night on the rug with rubber shoes and fell. NO prodrome of malaise, chest pain, confusion or weakness. CT head showed very minimal hemorrhage, now much improved on ct head. Patient has normal neurology exam with no headache, no other complaints. ROS; none. ON exam: Normal neurological exam. PMH/PSH: as above. FH/SH: non contributory. All: nkda. Past Patient History - Infectious Disease Hx of Infectious Diseases: None - Past Social History Smoking Status: Former Smoker - CARDIAC Hx Cardia Arrhythmia: Yes (a fib) Hx Hypercholesterolemia: Yes Hx Hypertension: Yes - PULMONARY Hx Respiratory Disorders: No - NEUROLOGICAL Hx Neurological Disorder: No - HEENT Hx HEENT Problems: Yes (eye glasses for reading) Hx Cataracts: Yes (sx bilateral) Other/Comment: Partials upper and lower - RENAL Hx Kidney Stones: Yes (1 year ago) - ENDOCRINE/METABOLIC Hx Endocrine Disorders: No - HEMATOLOGICAL/ONCOLOGICAL Hx Blood Disorders: No - INTEGUMENTARY Other/Comment: informed patient that mold on right cheek might be cancerous - MUSCULOSKELETAL/RHEUMATOLOGICAL Hx Falls: Yes - GENITOURINARY/GYNECOLOGICAL Hx Hematuria: Yes (1 year ago) - PSYCHIATRIC Hx Psychophysiologic Disorder: No - SURGICAL HISTORY Hx Surgeries: Yes (cariot artey bilateral) Other/Comment: Tongue lesion bx - ANESTHESIA Hx Anesthesia: Yes Hx Anesthesia Reactions: No Hx Malignant Hyperthermia: No Meds Allergies/Adverse Reactions: Allergies Allergy/AdvReac Type Severity Reaction Status Date / Time No Known Allergies Allergy Verified 06/01/18 12:53 - Medications Medications: Current Medications Atorvastatin Calcium (Lipitor) 10 mg PO DIN DAYO Hydralazine HCl (Apresoline) 10 mg IVP Q6 PRN PRN Reason: Systolic Blood Pressure Results - Vital Signs Recent Vital Signs: Last Vital Signs Temp 98.2 F 06/02/18 06:00 Pulse 82 06/02/18 06:00 Resp 29 H 06/02/18 06:00 BP 139/79 06/02/18 06:00 Pulse Ox 96 06/02/18 06:00 - Labs Result Diagrams: 06/02/18 05:30 06/02/18 05:30 Labs: Laboratory Results - last 24 hr 06/01/18 06/01/18 06/01/18 14:50 14:50 14:50 WBC 7.3 RBC 4.57 Hgb 13.9 L Hct 40.8 L MCV 89.3 MCH 30.4 MCHC 34.1 RDW 13.0 Plt Count 204 MPV 11.3 H Gran % 84.6 H Lymph % (Auto) 10.5 L [place] % (Auto) 4.8 Eos % (Auto) 0.1 L Baso % (Auto) 0.0 Gran # 6.17 Lymph # (Auto) 0.8 L [place] # (Auto) 0.4 Eos # (Auto) 0.0 Baso # (Auto) 0.00 Neutrophils % (Manual) Lymphocytes % (Manual) Monocytes % (Manual) Eosinophils % (Manual) Basophils % (Manual) Platelet Evaluation PT 25.9 H INR 2.23 APTT 35.2 Sodium 140 Potassium 4.3 Chloride 108 H Carbon Dioxide 23 Anion Gap 14 BUN 15 Creatinine 0.9 Est GFR ( Amer) > 60 Est GFR (Non-Af Amer) > 60 Random Glucose 108 Calcium 10.8 H Phosphorus Magnesium Total Bilirubin 1.0 AST 38 ALT 35 Alkaline Phosphatase 243 H Total Protein 8.2 Albumin 5.0 H Globulin 3.2 Albumin/Globulin Ratio 1.6 Blood Type Blood Type Confirm Antibody Screen BBK History Checked 06/01/18 06/01/18 06/02/18 14:50 15:15 05:30 WBC 4.3 L D RBC 4.16 Hgb 12.6 L Hct 36.9 L MCV 88.7 MCH 30.3 MCHC 34.1 RDW 13.1 Plt Count 167 MPV 11.4 H Gran % 69.0 H Lymph % (Auto) 9.4 L [place] % (Auto) 21.1 H Eos % (Auto) 0.5 L Baso % (Auto) 0.0 Gran # 2.95 Lymph # (Auto) 0.4 L [place] # (Auto) 0.9 H Eos # (Auto) 0.0 Baso # (Auto) 0.00 Neutrophils % (Manual) 79 H Lymphocytes % (Manual) 6 L Monocytes % (Manual) 13 H Eosinophils % (Manual) 1 Basophils % (Manual) 1 Platelet Evaluation Normal PT INR APTT Sodium Potassium Chloride Carbon Dioxide Anion Gap BUN Creatinine Est GFR ( Amer) Est GFR (Non-Af Amer) Random Glucose Calcium Phosphorus Magnesium Total Bilirubin AST ALT Alkaline Phosphatase Total Protein Albumin Globulin Albumin/Globulin Ratio Blood Type A POSITIVE Blood Type Confirm A POSITIVE Antibody Screen Negative BBK History Checked No verified bt 06/02/18 06/02/18 05:30 09:50 WBC RBC Hgb Hct MCV MCH MCHC RDW Plt Count MPV Gran % Lymph % (Auto) [place] % (Auto) Eos % (Auto) Baso % (Auto) Gran # Lymph # (Auto) [place] # (Auto) Eos # (Auto) Baso # (Auto) Neutrophils % (Manual) Lymphocytes % (Manual) Monocytes % (Manual) Eosinophils % (Manual) Basophils % (Manual) Platelet Evaluation PT 14.2 H INR 1.23 APTT Sodium 139 Potassium 4.0 Chloride 109 H Carbon Dioxide 24 Anion Gap 10 BUN 12 Creatinine 0.8 Est GFR ( Amer) > 60 Est GFR (Non-Af Amer) > 60 Random Glucose 94 Calcium 10.1 Phosphorus 2.7 Magnesium 1.9 Total Bilirubin 1.3 AST 34 ALT 31 Alkaline Phosphatase 193 H D Total Protein 7.2 Albumin 4.3 Globulin 2.9 Albumin/Globulin Ratio 1.4 Blood Type Blood Type Confirm Antibody Screen BBK History Checked Assessment & Plan - Assessment and Plan (Free Text) Assessment: CT scan: very minimal hemorrhage. no stroke. A/p: 83 yr old male who is now stable with very minimal intracranial bleed. May be dcd home. Thank you Dr. marie Neurology
[2018-06-02 13:55] VITALS: O2SAT 94
--- NOTE | 2018-06-02 14:33 | CON ---
NEUROLOGY FOLLOWUP DATE: 06/02/2018 CHIEF COMPLIANT: Status post fall on the left side. HISTORY OF PRESENT ILLNESS: This is a 82-year-old male with history of atrial fibrillation on Coumadin for some years left side and has bruised his left side. His initial CAT scan showed some minimal subarachnoid hemorrhage versus repeat CAT scan did not show any acute abnormalities. He currently denies any change of sensory, vision, taste and smell. No headaches at this time. No blurry vision. He has difficulty lifting his left arm because it is painful after his fall, he had fallen on left side. Otherwise, neuro exam is intact. PAST MEDICAL HISTORY: As above. SOCIAL HISTORY: No illicit drug use, smoking or ETOH use. REVIEW OF SYSTEMS: A 14-point review of systems is negative except as per HPI. FAMILY HISTORY: Noncontributory. MEDICATIONS: Reviewed by nurse reconciliation sheet. ALLERGIES: NO KNOWN DRUG ALLERGIES LABORATORY DATA: Sodium 139, potassium 4, chloride 109, carbon dioxide 24, BUN 12, creatinine 0.8 and random glucose 94. PHYSICAL EXAMINATION GENERAL: The patient is sitting up in bed and in no acute distress. VITAL SIGNS: Temperature 98.2, pulse 87, blood pressure 139/69, respirations 17 and oxygen saturation 96% on room air. HEENT: Atraumatic and normocephalic. PERRLA. Extraocular muscles intact. NECK: Supple. No JVD. No adenopathy noted. LUNGS: Clear to auscultation. No adventitious sounds. HEART: S1 and S2. Normal rate and rhythm. No murmurs, rubs, or gallops. ABDOMEN: Soft, nontender, and nondistended. Bowel sounds present. EXTREMITIES: No clubbing. No cyanosis. Peripheral pulses 2+ felt bilaterally. NEUROLOGIC: The patient is alert and oriented to person, place, and month and year. Speech is fluent without errors. Cranial nerves II through XII are intact. Motor exam; moves all extremities. Toes are downgoing bilaterally. Sensory exam; light touch, pinprick, proprioception and vibration are intact. DTRs are 2+ throughout. Coordination; [id number] intact. No dysmetria noted. Gait is deferred for now. Musculoskeletal: Difficulty lifting left arm due to pain and range of motion. Otherwise, no focal deficit. IMPRESSION: Status post mechanical fall resulting in contusion of the left arm, resulting left arm pain, which he will followup as an outpatient for EMG nerve conduction of his left arm to make sure there is no nerve damage. We will recommend outpatient physical therapy for him. In addition, there is no evidence of any subarachnoid hemorrhage and he is clinically stable for discharge. Mj Gordon MD
[2018-06-02 15:54] VITALS: BP 150/68; PULSE 96; RESP 28
[2018-06-02 16:01] VITALS: TEMP 98.7
--- NOTE | 2018-06-02 20:25 | CON ---
DATE: 06/02/2018 REASON FOR CONSULTATION: Cardiac evaluation; history of atrial fibrillation, on Coumadin; status post fall; and status post intracerebral bleed. 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 Denies any chest pain, denies any shortness of breath, or denies any palpitation. PAST MEDICAL HISTORY: Significant for hypertension and history of chronic atrial fibrillation, on anticoagulation. SOCIAL HISTORY: Denies any smoking, quit more than 34 years ago. Denies any history of alcohol abuse. CURRENT MEDICATIONS: The patient is taking benazepril one tablet daily, possibly 10-20 mg daily; atorvastatin 1 tablet daily, dose unknown; aspirin 81 mg daily; amlodipine as mentioned above; and Coumadin daily. ALLERGIES: NO KNOWN DRUG ALLERGIES. REVIEW OF SYSTEMS: As per HPI. PAST SURGICAL HISTORY: Significant for carotid artery endarterectomy 2008. PHYSICAL EXAMINATION: VITAL SIGNS: Rest of the examination as follows; height of the patient is 5 feet 8 inches, weight of the patient 175 pounds, and body mass index 26 kg/m2, heart rate is 78 and blood pressure 139/78. HEENT: PERRLA. Extraocular muscles intact. NECK: Supple. No carotid bruit or thyromegaly. CHEST: Clear to auscultation. HEART: S1 and S2 regular. ABDOMEN: Soft. EXTREMITIES: Clubbing and cyanosis negative. LABORATORY DATA: Blood workup: WBC 4.3, hemoglobin 12, hematocrit 36.9, and platelet count 167. Chemistry shows sodium 139, potassium 4, chloride 109, carbon dioxide 24, anion gap of 10, BUN 12, and creatinine 0.8. EKG showed atrial fibrillation, rate of 89. Head CT shows first one at 06/01/2018 subtle area of subarachnoid hemorrhage described in greater detail above, subarachnoid bleed. Repeat CAT scan of the head was done shows no acute intracranial bleeding. IMPRESSION AND PLAN: An 83-year-old male with past medical history significant for chronic atrial fibrillation, on Coumadin; INR yesterday was 2.23, came in after a fall. Initial CAT scan reported subarachnoid bleed. Repeat CAT scan did not show any bleed. History of chronic atrial fibrillation, hypertension, hyperlipidemia and atrial fibrillation. We will get echo to assess left ventricular function as well as rule out thrombus, anticoagulation can be held for longer. We will get the lipid profile, TSH, and hemoglobin A1c also. We will get calcium and magnesium phosphate tomorrow. Followup neurologist about the discrepancy in the stress test. Further recommendation depend upon hospital course. We will follow with you. Thank you Dr. Khan for providing us the opportunity in taking care of the patient, Diego Washington. Ryne Gloria MD
--- NOTE | 2018-06-03 11:02 | CARD ---
APPROVED REPORT Date of service: 06/02/2018 EXAM: Two-dimensional and M-mode echocardiogram with Doppler and color Doppler. INDICATION S/P FALL, INTRACEREBALLR BLEED, CH A FIB 2D DIMENSIONS IVSd1.3 (0.7-1.1cm)LVDd4.6 (3.9-5.9cm) PWd1.1 (0.7-1.1cm)LVDs2.9 (2.5-4.0cm) FS (%) 37.2 %LVEF (%)67.2 (>50%) M-Mode DIMENSIONS Left Atrium (MM)5.70 (2.5-4.0cm)Aortic Root3.20 (2.2-3.7cm) Aortic Cusp Exc.1.80 (1.5-2.0cm) Aortic Valve AoV Peak Efpgxarl902.0cm/Brigido Peak GR.16mmHgAI P 1/2 Bacl120ko Mitral Valve MV E Xymetkvn356.0cm/sMV E Peak Gr.144mmHg TDI Lateral E' Peak V15.30cm/sMedial E' Peak V9.16cm/sE/Lateral E'6.7 E/Medial E'11.2 Tricuspid Valve TR Peak [id number]/sRAP [id number] Peak Gr.52mmHg [id number] LEFT VENTRICLE The left ventricle is normal size. There is mild concentric left ventricular hypertrophy. The left ventricular function is normal.EF-65% There is normal LV segmental wall motion. A fib No left ventricle thrombus noted on this study. There is no ventricular septal defect visualized. There is no left ventricular aneurysm. There is no mass noted in the left ventricle. RIGHT VENTRICLE The right ventricle is moderately dilated. There is normal right ventricular wall thickness. Systolic function of RV is mildly to moderately reduced. ATRIA The left atrium is moderately dilated. The right atrium is moderately dilated. The interatrial septum is intact with no evidence for an atrial septal defect. AORTIC VALVE The aortic valve is thickened but opens well. There is mild aortic regurgitation. There is no aortic valvular stenosis. There is no aortic valvular vegetation. MITRAL VALVE The mitral valve is thickened but opens well. Mitral regurgitation is mild to moderate. There is no mitral valve stenosis. There is no evidence of mitral valve prolapse. TRICUSPID VALVE The tricuspid valve leaflets are thickened , but open well. There is moderate tricuspid regurgitation.RVSP-62 mmof Hg There is moderate pulmonary hypertension. There is no tricuspid valve stenosis. There is no tricuspid valve prolapse or vegetation. PULMONIC VALVE The pulmonic valve is mildly thickened. There is mild pulmonic valvular regurgitation. There is no pulmonic valvular stenosis. GREAT VESSELS The aortic root is normal in size. The ascending aorta is normal in size. The pulmonary artery is normal. The IVC is normal in size and collapses >50% with inspiration. PERICARDIAL EFFUSION There is small left pleural effusion. There is no pericardial effusion. <Conclusion> The left ventricle is normal size. The left ventricular function is normal.EF-65% The right ventricle is moderately dilated. Systolic function of RV is mildly to moderately reduced. Bi -atrial enlargement. There is mild aortic regurgitation. Mitral regurgitation is mild to moderate. There is moderate tricuspid regurgitation.RVSP-62 mmof Hg There is moderate pulmonary hypertension. The IVC is normal in size and collapses >50% with inspiration. There is small left pleural effusion. There is no pericardial effusion. No thrombus noted.
== END 2018-06-02 16:03 | disposition home or self-care (01) | DRG 87 ==
LOC: ED 12:31 → ERH 14:37 → CCU 16:27
PROVIDERS: ADMIT Internal Medicine; ATTEND Internal Medicine
PROC: 30233K1 Transfusion of Nonautologous Frozen Plasma into Peripheral Vein, Percutaneous Approach (ICD-10-PCS; principal; 2018-06-01)
DX: S06.6X0A Traumatic subarachnoid hemorrhage without loss of consciousness, initial encounter (principal); Z79.01 Long term (current) use of anticoagulants; I48.2 Chronic atrial fibrillation; E78.00 Pure hypercholesterolemia, unspecified; E78.5 Hyperlipidemia, unspecified; D64.9 Anemia, unspecified; I10 Essential (primary) hypertension; Z87.442 Personal history of urinary calculi; Z87.891 Personal history of nicotine dependence; S40.022A Contusion of left upper arm, initial encounter; W01.198A Fall on same level from slipping, tripping and stumbling with subsequent striking against other object, initial encounter; Y92.009 Unspecified place in unspecified non-institutional (private) residence as the place of occurrence of the external cause; R40.2412 Glasgow coma scale score 13-15, at arrival to emergency department; Z98.42 Cataract extraction status, left eye; Z98.41 Cataract extraction status, right eye